=== PATIENT | male | born 1990 | race Caucasian/White ===

== ENCOUNTER 2023-06-02 15:52 | Emergency (ER) | payer SELFPAY ==
[2023-06-02 15:55] VITALS: BP 128/87
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
== END 2023-06-02 17:33 | disposition home or self-care (01) ==
LOC: EMR 15:52
PROVIDERS: EMERGENCY PHYSICIAN Emergency Medicine
DX: S20.219A Contusion of unspecified front wall of thorax, initial encounter (principal); V43.52XA Car driver injured in collision with other type car in traffic accident, initial encounter
CPT/HCPCS: 99283; 71101